=== PATIENT | female | born 1975 | race Caucasian/White ===

== ENCOUNTER 2016-09-24 03:29 | Emergency (ER) | payer OTHER ==
[~2016-09-24] VITALS: Ht 172.7 cm; Wt 74.8 kg
[2016-09-24] MEDS ORDERED: KLONOPIN0.5 MG PO (03:42)
[2016-09-24] MEDS ORDERED: NEURONTIN600 MG PO (03:42)
[2016-09-24 04:13] LABS: BASO # 0.1 10*3/uL (0.0-0.1); BASO % 0.5 % (0.0-1.0); EOS # 0.1 10*3/uL (0.0-0.4); EOS % 1.1 % (1.0-4.0); HEMATOCRIT 41.6 % (37.0-47.0); HEMOGLOBIN 13.8 g/dl (12.0-16.0); LYMPH # 2.5 10*3/uL (1.3-4.4); LYMPH % 23.9 % (27.0-41.0); MEAN CELL VOLUME 93.1 fl (81.0-99.0); MEAN CORPUSCULAR HGB 30.9 pg (27.0-31.0); MEAN CORPUSCULAR HGB CONC 33.2 g/dl (33.0-37.0); MEAN PLATELET VOLUME 8.7 fl (9.6-12.3); MONO # 0.5 10*3/uL (0.1-1.0); MONO % 4.9 % (3.0-9.0); NEUT # 7.3 10*3/uL (2.3-7.9); NEUT % 69.3 % (47.0-73.0); PLATELET COUNT AUTOMATED 356 10*3/uL (130-400); RED BLOOD COUNT 4.47 10*6/uL (4.10-5.10); RED CELL DISTRI WIDTH 13.4 % (0-14.5); WHITE BLOOD COUNT 10.5 10*3/uL (4.8-10.8)
[2016-09-24 04:15] LABS: BILIRUBIN NEGATIVE (NEGATIVE); BLOOD TRACE-INTACT (NEGATIVE); CLARITY SL CLOUDY (CLEAR); COLOR YELLOW (YELLOW); GLUCOSE NEGATIVE (NEGATIVE); KETONE NEGATIVE (NEGATIVE); LEUKO ESTERASE NEGATIVE (NEGATIVE); NITRITE NEGATIVE (NEGATIVE); PH 5.5 (5.0-9.0); PROTEIN 1+ (NEGATIVE); SPECIFIC GRAVITY <= 1.005 (1.005-1.030); UROBILINOGEN 0.2 E.U./dl (0.2-1.0)
[2016-09-24 04:22] LABS: BACTERIA 2+; URINE REFLEX COMMENT YES (NO)
[2016-09-24 04:24] LABS: INTERNATIONAL NORM RATIO 1.1 (2.0-3.5); PROTHROMBIN TIME 11.4 SECONDS (9.0-12.4)
[2016-09-24 04:25] LABS: URINE AMPHETAMINES < 1000 (1000ng/ml); URINE BARBITURATES < 200 (200ng/ml); URINE COCAINE < 300 (300ng/ml)
[2016-09-24 04:30] LABS: ALBUMIN 3.5 gm/dl (3.1-4.5); ALKALINE PHOSPHATASE 63 U/L (45-117); BILIRUBIN, TOTAL 0.2 mg/dl (0.2-1.0); BUN 5 mg/dl (7-24); CARBON DIOXIDE 23 mmol/L (21-32); CHLORIDE 115 mmol/L (98-107); EST GLOM FILT AFRICAN AMERICAN > 60 ml/min; GLUCOSE 106 mg/dL (65-99); MAGNESIUM 1.8 mg/dL (1.5-2.1); POTASSIUM 3.8 mmol/L (3.5-5.1); SGOT/AST 53 IU/L (3-35); SGPT/ALT 44 U/L (12-78); SODIUM 147 mmol/L (136-145); TOTAL PROTEIN 6.5 gm/dL (6.4-8.2)
[2016-09-24 04:31] LABS: TROPONIN I < 0.015 ng/ml (<0.045)
== END 2016-09-24 05:46 | disposition home or self-care (01) ==
LOC: ED 03:29
PROVIDERS: Student in an Organized Health Care Education/Training Program
DX: S30.811A Abrasion of abdominal wall, initial encounter (principal); S20.412A Abrasion of left back wall of thorax, initial encounter; F10.929 Alcohol use, unspecified with intoxication, unspecified; Z88.8 Allergy status to other drugs, medicaments and biological substances; V89.2XXA Person injured in unspecified motor-vehicle accident, traffic, initial encounter; Y93.89 Activity, other specified; Y92.488 Other paved roadways as the place of occurrence of the external cause; Y99.8 Other external cause status

== ENCOUNTER 2024-08-04 16:08 | Emergency (ER) | payer BC ==
[~2024-08-04] VITALS: Ht 180.3 cm; Wt 86.6 kg
[~2024-08-04 16:08] MED LIST: KLONOPIN0.5 MG PO; NEURONTIN600 MG PO
[2024-08-04] MEDS ORDERED: IBU800 M1 PO (16:22)
[2024-08-04] MEDS ORDERED: BUSPIRONE HCL30 MG PO (16:22)
[2024-08-04] MEDS ORDERED: ADDERALL XR10 MG PO (16:23)
[2024-08-04] MEDS ORDERED: BUPROPION HYDR100 MG PO (16:23)
[2024-08-04] MEDS ORDERED: Acetaminophen/Hydrocodone HP 10/325 PO ONE (16:30)
[2024-08-04] MEDS ORDERED: CLINDAMYCIN HCL 300 MG CAPSULE PO ONE (16:30)
[2024-08-04] MEDS ORDERED: HYDROCODONE-AC1 EACH PO (16:34)
[2024-08-04] MEDS ORDERED: CLEOCIN HCL300 MG PO (16:34)
== END 2024-08-04 16:46 | disposition home or self-care (01) ==
LOC: ED 16:08
DX: K08.89 Other specified disorders of teeth and supporting structures (principal); Z79.899 Other long term (current) drug therapy

== ENCOUNTER 2024-08-26 16:56 | Emergency (ER) | payer BC ==
[~2024-08-26] VITALS: Ht 180.3 cm; Wt 86.6 kg
[~2024-08-26 16:56] MED LIST changes: +ADDERALL XR10 MG PO; +BUPROPION HYDR100 MG PO; +BUSPIRONE HCL30 MG PO; +CLEOCIN HCL300 MG PO; +HYDROCODONE-AC1 EACH PO; +IBU800 M1 PO
[2024-08-26] MEDS ORDERED: Amoxicillin/Clavulanate Pota 875 MG TAB PO ONE (17:20)
[2024-08-26] MEDS ORDERED: Acetaminophen/Hydrocodone HP 10/325 PO ONE (17:20)
[2024-08-26] MEDS ORDERED: Motrin,Rufen800 MG PO (17:24)
[2024-08-26] MEDS ORDERED: AMOX-CLAV 875-1 EACH PO (17:24)
== END 2024-08-26 17:51 | disposition home or self-care (01) ==
LOC: ED 16:56
DX: K04.7 Periapical abscess without sinus (principal); F41.9 Anxiety disorder, unspecified; Z79.899 Other long term (current) drug therapy